=== PATIENT | male | born 1955 | race Hispanic/Latino ===

== ENCOUNTER → 2023-02-19 | Outpatient (CLI) | payer MEDICARE ==
[~2023-02-19] MED LIST: ABAC1TAB PO; AMLO-258 PO; DARU800T PO; ESOM40CA54 PO; FURO40TA5 PO; GABA-529 PO; GLIP10TA19 PO; LOSA25TA41 PO; METF-444 PO; POTA-202 PO; RITO100T4 PO
== END | disposition home or self-care (01) ==
LOC: LAB 10:00
PROVIDERS: ATTEND Internal Medicine Cardiovascular Disease
DX: R51.9 Headache, unspecified (principal); E11.9 Type 2 diabetes mellitus without complications; I10 Essential (primary) hypertension; I35.0 Nonrheumatic aortic (valve) stenosis; B20 Human immunodeficiency virus [HIV] disease; I31.39 Other pericardial effusion (noninflammatory); E78.2 Mixed hyperlipidemia
CPT/HCPCS: 36415; 85651; 86141

== ENCOUNTER 2023-04-28 06:56 | Emergency (ER) | payer MEDICARE ==
[~2023-04-28] VITALS: Ht 182.9 cm; Wt 86.2 kg
[~2023-04-28 06:56] MED LIST changes: +AEC81 PO; -AMLO-258 PO; +ATOR40TA69 PO; +FURO20TA6 PO; -FURO40TA5 PO; -LOSA25TA41 PO; +METO25 PO
[2023-04-28] MEDS ORDERED: ONDANSETRON ODT 4MG TAB SL ONE (08:00)
[2023-04-28] MEDS ORDERED: HYDROCODONE/ACETAMINOPHEN 5/325 MG TAB PO ONE (08:00)
[2023-04-28 08:06] LABS: BASOPHILS # (AUTO) 0.04 K/uL (0.00-0.20); BASOPHILS % (AUTO) 0.3 % (0.0-5.0); EOSINOPHILS # (AUTO) 0.12 K/uL (0.00-0.70); HEMATOCRIT 39.6 % (42-54); IMMATURE GRANULOCYTE ABSOLUTE 0.05 K/uL (0-1); LYMPHOCYTES # (AUTO) 1.5 K/uL (1.0-4.8); LYMPHOCYTES % (AUTO) 12.6 % (21.0-51.0); MEAN CORPUSCULAR HEMOGLOBIN 26.5 pg (27.0-33.0); MEAN CORPUSCULAR HGB CONC 31.6 g/dL (32.0-36.0); MEAN CORPUSCULAR VOLUME 84.1 fL (79-99); MONOCYTES # (AUTO) 0.6 K/uL (0.1-1.0); NEUTROPHILS # (AUTO) 9.8 K/uL (1.8-7.7); NEUTROPHILS % (AUTO) 80.7 % (40.0-77.0); PLATELET COUNT (AUTO) 270 K/uL (130-400); RED BLOOD CELL COUNT(AUTO) 4.71 MIL/uL (4.50-6.20); WHITE BLOOD COUNT (AUTO) 12.2 K/uL (4.8-10.8)
[2023-04-28 08:15] LABS: CREATININE 1.2 mg/dL (0.5-1.5); POTASSIUM 3.9 mmol/L (3.5-5.1)
[2023-04-28 08:19] LABS: ALBUMIN 3.7 g/dL (3.5-5.0); BILIRUBIN,TOTAL 0.3 mg/dL (0.2-1.0)
[2023-04-28] MEDS ORDERED: KETOROLAC 15MG/ML VIAL (15MG/ML) IM ONE (09:30)
[2023-04-28 11:03] VITALS: BP 142/78; PULSE 72; RESP 18; O2SAT 98
[2023-04-28] MEDS ORDERED: IBUP-2076 PO (11:39)
[2023-04-28] MEDS ORDERED: ACET-66 PO (11:39)
== END 2023-04-28 11:48 | disposition home or self-care (01) ==
LOC: EDH 06:56
DX: M25.511 Pain in right shoulder (principal); E11.9 Type 2 diabetes mellitus without complications; I25.10 Atherosclerotic heart disease of native coronary artery without angina pectoris; I11.0 Hypertensive heart disease with heart failure; I50.9 Heart failure, unspecified; Z79.624 Long term (current) use of inhibitors of nucleotide synthesis; Z79.82 Long term (current) use of aspirin; Z79.84 Long term (current) use of oral hypoglycemic drugs; Z79.899 Other long term (current) drug therapy; Z88.1 Allergy status to other antibiotic agents; Z95.1 Presence of aortocoronary bypass graft; Z95.2 Presence of prosthetic heart valve
CPT/HCPCS: 99285; 71045; 84484; 80053; 85025; 36415; 73030; 96372; 93005; J1885

== ENCOUNTER → 2023-11-18 | Outpatient (CLI) | payer MEDICARE ==
[~2023-11-18] MED LIST changes: +ACET-66 PO; -ESOM40CA54 PO; +ESOM40CA66 PO; +IBUP-2076 PO
== END | disposition home or self-care (01) ==
LOC: SHCH 07:35
PROVIDERS: ATTEND Internal Medicine Cardiovascular Disease
DX: I34.81 Nonrheumatic mitral (valve) annulus calcification (principal); Z95.4 Presence of other heart-valve replacement
CPT/HCPCS: 93306

== ENCOUNTER → 2024-09-13 | Outpatient (CLI) | payer MEDICARE ==
[~2024-09-13] MED LIST changes: +GLIP-302 PO; -GLIP10TA19 PO
--- NOTE | 2024-09-13 14:11 | HMCIMG ---
PA AND LATERAL CHEST RADIOGRAPH INDICATION: Encounter for screening for respiratory disorder NEC COMPARISON: 04/28/2023 FINDINGS: Median sternotomy wires as well as fixation plates and screws are in appropriate alignment. Heart size is normal. Stable cardiac valve prosthesis. Mild calcific plaque is present along the aortic arch ventura. The pulmonary vascularity and sara appear normal. No abnormal pulmonary parenchymal opacity or consolidation identified. No significant pleural effusion noted. No pneumothorax detected. IMPRESSION: No radiographic evidence for any acute cardiopulmonary process.
== END | disposition home or self-care (01) ==
LOC: RAH 13:38
PROVIDERS: ATTEND Pediatrics
DX: Z13.83 Encounter for screening for respiratory disorder NEC (principal); I70.0 Atherosclerosis of aorta
CPT/HCPCS: 71046

== ENCOUNTER 2024-12-10 13:31 | Emergency (ER) | payer MEDICARE ==
[~2024-12-10] VITALS: Ht 175.3 cm; Wt 92.5 kg
--- NOTE | 2024-12-10 13:38 | ERN ---
ED Note History of Present Illness Stated Complaint: CHEST, LT ARM PAIN Chief Complaint: Chest Pain Time Seen by MD: 13:33 Dictation: PATIENT IS A 69-YEAR-OLD MALE WHO COMPLAINTS OF LEFT LATERAL AND AXILLARY CHEST PAIN WITH NUMBNESS AND TINGLING TO HIS LEFT ARM ONSET WAS THURSDAY. NO SOB NO JAW , NO BACK PAIN NO NECK PAIN. STATES HE HAS A HISTORY OF CAD HYPERTENSION AND A CABG X1. PATIENT OF DR. JORGENSEN, CARDIOLOGY SAW HIM ON THURSDAY AND WAS NO PAIN AT THAT TIME AND HE SAID HE WAS GIVEN A CLEAN BILL OF HEALTH. Allergies: Coded Allergies: emtricitabine (Unverified Allergy, Unknown, 03/12/23) levofloxacin (Unverified Allergy, Unknown, 03/12/23) nevirapine (Unverified Allergy, Unknown, 03/12/23) tenofovir (Unverified Allergy, Unknown, 03/12/23) Home Meds Active Scripts Acetaminophen (Acetaminophen) 500 Mg Tablet, 500 MG PO Q6HPRN PRN for PAIN, #30 TAB Prov:CAMRON MCCLOUD MD 04/28/23 Ibuprofen (Ibuprofen) 400 Mg Tablet, 400 MG PO Q6HPRN PRN for PAIN, #12 TAB Prov:CAMRON MCCLOUD MD 04/28/23 Furosemide (Lasix 20Mg Tab) 20 Mg Tablet, 20 MG PO BID for 30 Days, #60 TAB 1 Refill Prov:SHAE ROD MD 03/17/23 Metoprolol Tartrate (Lopressor) 25 Mg Tab, 25 MG PO BID, #60 TAB 1 Refill Prov:SHAE ROD MD 03/17/23 Atorvastatin Calcium (LIPITOR) 40 Mg Tablet, 40 MG PO HS, #30 TAB 1 Refill Prov:SHAE ROD MD 03/17/23 Aspirin (ASPIRIN 81 MG ECTAB) 81 Mg Ectab, 81 MG PO DAILY, #30 TAB.EC 1 Refill Prov:SHAE ROD MD 03/17/23 Reported Medications Metformin HCl (Metformin HCl) 500 Mg Tablet, 500 MG PO BID, TAB 03/12/23 Gabapentin (Gabapentin) 100 Mg Capsule, 100 MG PO BID, CAP 03/12/23 Glipizide (Glipizide ER) 10 Mg Tab.er.24, 10 MG PO DAILY 10/12/23 Esomeprazole Magnesium (Esomeprazole Magnesium) 40 Mg Capsule.dr, 40 MG PO HS, CAP 03/12/23 Ritonavir (Ritonavir) 100 Mg Tablet, 100 MG PO DAILY, TAB 03/12/23 Abacavir Sulfate/Lamivudine (Abacavir-Lamivudine 600-300 mg) 600 Mg-300 Mg Tablet, 1 EACH PO DAILY, TAB 03/12/23 Darunavir Ethanolate (Prezista) 800 Mg Tablet, 800 MG PO DAILY, TAB 03/12/23 Potassium Chloride (Potassium Chloride) 20 Meq Tab.er.prt, 20 MEQ PO DAILY 03/12/23 Past Medical History Past Medical History: CAD, CHF, Diabetes-Type II, GERD, Heart Disease, HIV, Hypertension, Other Additional Past Medical Hx: AORTIC STENOSIS, HEART MUMUR, Surgical History: CABG, Other Surgical History Other: Aortic valve replacement RN Note Reviewed/Agreed w/PFSH: Yes Review of System Dictation CONSTITUTIONAL: NEGATIVE EXCEPT FOR HPI HEAD/FACE: NEGATIVE EXCEPT FOR HPI EENT: NEGATIVE EXCEPT FOR HPI RESPIRATORY: NEGATIVE EXCEPT FOR HPI LEFT LATERAL CHEST PAIN WITH NUMBNESS AND TINGLING LEFT ARM GASTROINTESTINAL/ABDOMINAL: NEGATIVE EXCEPT FOR HPI GENITOURINARY: NEGATIVE EXCEPT FOR HPI MUSCULOSKELETAL: NEGATIVE EXCEPT FOR HPI INTEGUMENTARY: NEGATIVE EXCEPT FOR HPI NEUROLOGICAL/PSYCH: NEGATIVE EXCEPT FOR HPI HEMATOLOGIC/LYMPHATIC: NEGATIVE EXCEPT FOR HPI ALL SYSTEMS NEGATIVE, EXCEPT NOTED ABOVE. 13 POINT REVIEW OF SYSTEMS ASSESSED AND ALL NEGATIVE EXCEPT FOR ABOVE. Initial Vital Sign VS Vital Signs Date Time Temp Pulse Resp B/P (MAP) Pulse Ox O2 Delivery O2 Flow Rate FiO2 12/10/24 13:32 99.9 78 16 177/87 97 Room Air 0 12/10/24 14:53 21 Physical Exam Dictation VITAL SIGNS REVIEWED GENERAL APPEARANCE: ALERT, ORIENTED X 3, MILD ACUTE DISTRESS, WELL DEVELOPED, NOURISHED. HEAD AND FACE: NON-TRAUMATIC. EYES: PERRL, PINK CONJUNCTIVAS, EYELID NO TRAUMA, ANTERIOR CHAMBER WITH ARCUS SENILIS. EARS: PINNAS INTACT AND NO SIGNS OF TRAUMA OR ERYTHEMA EAR CANALS CLEAR AND NO DISCHARGE TM NO ERYTHEMA NOSE: NO DISCHARGE, NO BLEEDING. OROPHARYNX: MOUTH NORMAL, TONGUE PINK, PHARYNX CLEAR,NO ERYTHEMA, TONSILS NO EXUDATES, NO ABSCESSES NOTED, MUCOUS MEMBRANE MOIST NECK: SUPPLE, NON-TENDER, NO THYROMEGALY, NO MASSES, NO JVD, NO BRUITS BREAST:DEFERRED CHEST:NO TENDERNESS, NO CREPITUS, NO PARADOXICAL MOVEMENT, NO RETRACTIONS LUNGS:CLEAR, WELL-VENTILATED, SYMMETRIC, NO RALES, NO WHEEZING, NO RHONCHI, NO STRIDOR, GOOD BREATH SOUNDS BILATERALLY HEART: REGULAR RATE, REGULAR RHYTHM, NO MURMUR, NO GALLOPS VASCULAR: NO PERIPHERAL EDEMA, ABDOMEN: SOFT, POSITIVE BOWEL SOUNDS, NONDISTENDED, NO GUARDING, NONTENDER, NO REBOUND, NO MASSES NO HEPATOMEGALY, NO SPLENOMEGALY, NO BAIN'S SIGN, NO HERNIAS. RECTAL: DEFERRED GENITAL: DEFERRED NEUROLOGICAL: NORMAL SPEECH, MOTOR FUNCTION INTACT, SENSORY FUNCTION INTACT MUSCULOSKELETAL: NECK NONTENDER, FULL RANGE OF MOTION, BACK NONTENDER, FULL RANGE OF MOTION, EXTREMITIES: NONTENDER, FULL RANGE OF MOTION SKIN: COLOR PINK, DRY, NO TURGOR, NO RASH, NO LACERATIONS, NO ABRASIONS, NO CONTUSIONS. LYMPHATIC: DEFERRED Results (Laboratory/Radiology) Laboratory/Radiology Laboratory Tests Test 12/10/24 13:50 12/10/24 15:20 White Blood Count 9.7 K/uL (4.8-10.8) Red Blood Count 4.80 MIL/uL (4.50-6.20) Hemoglobin 13.2 g/dL (14.0-18.0) L Hematocrit 40.4 % (42-54) L Mean Corpuscular Volume 84.2 fL (79-99) Mean Corpuscular Hemoglobin 27.5 pg (27.0-33.0) Mean Corpuscular Hemoglobin Concent 32.7 g/dL (32.0-36.0) Red Cell Distribution Width 15.7 % (11.0-15.5) H Platelet Count 185 K/uL (130-400) Mean Platelet Volume 10.8 fL (7.5-10.5) H Immature Granulocyte % (Auto) 0.3 % (0-1) Neutrophils (%) (Auto) 72.5 % (40.0-77.0) Lymphocytes (%) (Auto) 17.8 % (21.0-51.0) L Monocytes (%) (Auto) 7.0 % (3.0-13.0) Eosinophils (%) (Auto) 1.9 % (0.0-8.0) Basophils (%) (Auto) 0.5 % (0.0-5.0) Neutrophils # (Auto) 7.0 K/uL (1.8-7.7) Lymphocytes # (Auto) 1.7 K/uL (1.0-4.8) Monocytes # (Auto) 0.7 K/uL (0.1-1.0) Eosinophils # (Auto) 0.18 K/uL (0.00-0.70) Basophils # (Auto) 0.05 K/uL (0.00-0.20) Absolute Immature Granulocyte (auto 0.03 K/uL (0-1) Nucleated Red Blood Cells 0.0 % (0.0-0.19) Sodium Level 139 mmol/L (136-145) Potassium Level 4.0 mmol/L (3.5-5.1) Chloride Level 104 mmol/L (101-111) Carbon Dioxide Level 29 mmol/L (21-32) Blood Urea Nitrogen 19 mg/dL (7-18) H Creatinine 1.1 mg/dL (0.5-1.3) Glomerular Filtration Rate Calc 73 mL/min (>90) Random Glucose 151 mg/dL (70-105) H Total Calcium 9.0 mg/dL (8.5-10.1) Magnesium Level 2.00 mg/dL (1.80-2.40) Troponin I High Sensitivity 8 ng/L (4-75) 6 ng/L (4-75) Labs Reviewed?: Yes EKG Comment: EKG SINUS RHYTHM/HEART RATE 78/AXIS NORMAL NONSPECIFIC CHANGES LEADS TWO AND THREE Sixteen 12nd EKG sinus rhythm/heart rate 69/axis normal/no changes from initial EKG 2nd high sensitivity troponin six heart score is three ED Course ED Course Orders Procedure Category Date Status Time Cbc With Differential LAB 12/10/24 Complete 13:35 Chest 1vw RAD 12/10/24 Taken 13:35 12 Lead Ekg Tracing- EKG 12/10/24 Logged Technical 13:35 Magnesium LAB 12/10/24 Complete 13:35 Troponin I High LAB 12/10/24 Complete Sensitivity 13:35 Aspirin 325mg Tab PHA 12/10/24 Complete (Aspirin 325mg Tab) 14:00 Basic Metabolic Panel LAB 12/10/24 Complete 13:35 12 Lead Ekg Tracing- EKG 12/10/24 Logged Technical 15:02 Troponin I High LAB 12/10/24 Complete Sensitivity 15:02 Current Medications Medications (Trade) Dose Ordered Sig/Krista Route PRN Reason Start Time Stop Time Status Last Admin Dose Admin Aspirin (Aspirin 325mg Tab) 325 mg ONCE ONCE PO 12/10/24 14:00 12/10/24 14:01 DC 12/10/24 15:05 Vital Signs Date Time Temp Pulse Resp B/P (MAP) Pulse Ox O2 Delivery O2 Flow Rate FiO2 12/10/24 14:53 98.2 74 16 158/81 98 Room Air* 0 21 12/10/24 13:32 99.9 78 16 177/87 97 Room Air 0 1620/patient is hemodynamically stable no pain at this time. He is aware cardiac enzymes x2 are negative EKGs x2 negative he does not wish to be Admitted to the hospital at this time States he will follow up with his primary care doctor next week. HEART Score Response (Comments) Value EKG: Repolarization changes 1 Age: > 65yrs (+2) 2 Risk Factors: 1-2 risk factors (+1) 1 Initial Troponin: Normal limit (0) 0 Total 4 Medical Decision Making MDM MDM: Differential diagnosis:/AMS/electrolyte imbalance/dehydration/pneumonia/bronchitis/anxiety Rationale: Tests considered and ordered secondary to shared decision making include: EKG/labs/radiology Previous outside records reviewed: Old ER visits. Risk of complication and/or morbidity or mortality of patient management: None Medications-Per medication reconciliation Need for hospitalization: Patient does not meet criteria for hospitalization. Refused admission to the hospital states he will see his primary care doctor Thursday Need for emergency major/minor surgery: No There are no social concerns with this patient. Prescription drug management none Prescriptions will include symptomatic care Patient's prior external medical records from other ER visits were reviewed by me as indicated. Prior testing and results from previous visits were reviewed. Prior tests were taken into account with medical decision making and resource utilization, independent historian/historians were used to obtain complete medical history. I independently interpreted the test that were performed, results were reviewed by me and considered findings on radiology if ordered. Medical management and examination interpretation discussions were had by me with other qualified healthcare professionals as indicated for the patient's care. DX & DISP Disposition: Discharge Departure Impression: Primary Impression: Atypical chest pain Additional Impression: Stage 2 chronic kidney disease Condition: Stable Additional Instructions: Follow-up with primary care provider in 1 to 2 days. Take medications as directed here in the emergency room. Okay to continue home medications unless otherwise discussed during your visit in the emergency room today. Return to your nearest emergency room if symptoms worsen or if there is no improvement. Call 911 if you need immediate assistance. Take Tylenol or Motrin over-the- counter as needed and if no contraindications are present. Increase oral hydration. A wound culture or urine culture was ordered here in the emergency room department please follow-up with primary care provider and advise them to get repeat ports from our facility. If you had any Ifeanyi wrap/splints that were applied here, please do not remove them until you see your primary care or specialty. Diet and activity as tolerated follow up with your primary care doctor in the next 1-2 days. Referrals: ORLIN BRAY (PCP) Time of Disposition: 16:21 I have reviewed the case, and I agree with, Diagnosis and Plan ARPIT BELL NP Dec 10, 2024 13:38
[2024-12-10 13:58] LABS: IMMATURE GRANULOCYTE ABSOLUTE 0.03 K/uL (0-1); NUCLEATED RED BLOOD CELLS 0.0 % (0.0-0.19); PLATELET COUNT (AUTO) 185 K/uL (130-400); RED BLOOD CELL COUNT(AUTO) 4.80 MIL/uL (4.50-6.20); RED CELL DISTRIBUTION WIDTH 15.7 % (11.0-15.5); WHITE BLOOD COUNT (AUTO) 9.7 K/uL (4.8-10.8)
[2024-12-10 14:09] LABS: CREATININE 1.1 mg/dL (0.5-1.3); GLOMERULAR FILTR. RATE CALC 73.0 mL/min (>90); GLUCOSE,RANDOM 151.0 mg/dL (70-105); SODIUM SERUM 139.0 mmol/L (136-145); UREA NITROGEN, BLOOD 19.0 mg/dL (7-18)
[2024-12-10] MEDS: ASPIRIN 325MG TAB PO ONE (15:05)
--- NOTE | 2024-12-10 17:16 | EKG ---
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
--- NOTE | 2024-12-10 17:16 | EKG ---
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
[2024-12-10 17:58] VITALS: BP 151/79; PULSE 70; RESP 16; TEMP 98.2; O2SAT 97
[2024-12-10] MEDS: HYDROcodone/APAP 5/325 1 TAB TABLET PO ONE (17:58)
--- NOTE | 2024-12-12 16:39 | HMCIMG ---
EXAM: CR Chest, 1 View. CLINICAL HISTORY: CHEST PAIN COMPARISON: None provided. FINDINGS: LUNGS: There is no mass, infiltrate, or acute pulmonary abnormality. PLEURAL SPACES: No evidence of pleural effusion or pneumothorax. MEDIASTINUM: Cardiac size and mediastinal contours within normal limits. BONES: No acute osseous abnormality. IMPRESSION: No acute cardiopulmonary pathology is evident. /[facility]
== END 2024-12-10 17:59 | disposition home or self-care (01) ==
LOC: EDH 13:31
DX: I13.0 Hypertensive heart and chronic kidney disease with heart failure and stage 1 through stage 4 chronic kidney disease, or unspecified chronic kidney disease (principal); E11.22 Type 2 diabetes mellitus with diabetic chronic kidney disease; N18.2 Chronic kidney disease, stage 2 (mild); I25.10 Atherosclerotic heart disease of native coronary artery without angina pectoris; I50.9 Heart failure, unspecified; R07.89 Other chest pain; Z79.624 Long term (current) use of inhibitors of nucleotide synthesis; Z79.82 Long term (current) use of aspirin; Z79.84 Long term (current) use of oral hypoglycemic drugs; Z79.899 Other long term (current) drug therapy; Z88.1 Allergy status to other antibiotic agents; Z95.1 Presence of aortocoronary bypass graft; Z95.2 Presence of prosthetic heart valve
CPT/HCPCS: 36415; 71045; 80048; 83735; 84484; 85025; 93005; 99285

== ENCOUNTER → 2025-03-20 | Outpatient (CLI) | payer MEDICARE | END | disposition home or self-care (01) | LOC: RAH 12:37 | PROVIDERS: ATTEND Internal Medicine Cardiovascular Disease | DX: I35.1 Nonrheumatic aortic (valve) insufficiency (principal); I51.89 Other ill-defined heart diseases; R01.1 Cardiac murmur, unspecified; Z95.2 Presence of prosthetic heart valve | CPT/HCPCS: 93306 ==